=== PATIENT | male | born 1950 | race Caucasian/White ===

== ENCOUNTER 2024-07-22 07:32 | Day surgery (SDC) | payer MEDICARE ==
[2024-07-17 14:25] VITALS: BP 170/87
[~2024-07-22] VITALS: Ht 185.4 cm; Wt 104.5 kg
[~2024-07-22 07:32] MED LIST: CEFAZOLIN SODIUM 2 GM/20 ML SYR IV SCH; COZAAR100 MG PO; DEXAMETHASONE SOD PHOS 4 MG/ML VIAL ONE; FAMOTIDINE 20 MG/ 2 ML VIAL ONE; IBLOOD GLUCOSE TEST STRIP 1 EA TEST VI PRN; KETOROLAC TROMETHAMINE 30 MG/ML VIAL ONE; LACTATED RINGER'S 1,000 ML IV ONE; LACTATED RINGER'S 1,000 ML IV SCH; LIDOCAINE HCL 1% 5 ML SDV INJ ONE; LIPITOR40 MG PO; METOCLOPRAMIDE HCL 10 MG/2 ML SDV ONE; fentaNYL citrate 100 MCG/2 ML VIAL ONE; ondansetron HCL 4 MG/2 ML VIAL ONE; propofoL 200 MG/20 ML VIAL ONE
[2024-07-22 08:14] VITALS: BP 136/86
[2024-07-22] MEDS ORDERED: OXYMETAZOLINE HCL 30 ML BTL NAS SCH (08:30)
[2024-07-22] MEDS ORDERED: IBLOOD GLUCOSE TEST STRIP 1 EA TEST VI PRN (09:30)
[2024-07-22] MEDS ORDERED: NALOXONE HCL 0.4 MG SYR IV PRN (09:30)
[2024-07-22] MEDS ORDERED: ondansetron HCL 4 MG/2 ML VIAL IV PRN (09:30)
[2024-07-22] MEDS ORDERED: METOCLOPRAMIDE HCL 10 MG/2 ML SDV IV PRN (09:30)
[2024-07-22] MEDS ORDERED: droPERidol 5 MG/2 ML VIAL IV PRN (09:30)
[2024-07-22] MEDS ORDERED: fentaNYL citrate 50 MCG/ML SDV IV PRN (09:30)
[2024-07-22] MEDS ORDERED: MORPHINE SULFATE 10 MG/ML VIAL IV PRN (09:30)
[2024-07-22] MEDS ORDERED: PROCHLORPERAZINE EDISYLATE 10 MG/2 ML VIAL IV PRN (09:30)
--- NOTE | 2024-07-22 10:46 | NUR ---
07/22/24 1046 Sheets,Courtney 1015 PT ARRIVED TO PACU ON 10L VIA MASK, WITH ORAL AIRWAY AND JAW THRUST USED TO MAINTAIN AIRWAY. PERIOD OF APNEA NOTED WITHOUT JAWTHRUST. PT NONAROUSABLE TO PAINFUL STIMULI. 1019 HOB INCREASED AND PT REACTIVE TO JAW THRUST, PT SITTING IN HIGH FOWLERS AND JAW THRUST NO LONGER NEEDED. PERIOD OF APNEA NOTED AND DEEP BREATHING ENCOURAGED OFF AND ON WITH TACTILE STIMULI. 1031 ORAL AIRWAY REMOVED, PT REACHING UP TO HIS FACE AND O2 MASK REMOVED. PT REORIENTED TO PACU. PT REPORTS 10 AND TOLERABLE AT THIS TIME. 1040 PT WAKES OFF AND ON, "THE MORE I WAKE THE MORE PAIN I FEEL." EDUCATION GIVEN ON PAIN MEDICATION AND BREATHING. PT ENCOURAGED TO COUGH AND PT ABLE TO FOLLOW COMMANDS. 1042 "I HAVE A HARD TIME WAKING UP." PT CONTINUES TO DEEP BREATH OFF AND ON, WITHOUT STIMULI, RESP RATE 15-18. PT SIPPING WATER PER REQUEST
[2024-07-22] MEDS ORDERED: ACETAMINOPHEN 1,000 MG/100 ML VIAL IV ONE (11:00)
[2024-07-22 11:25] VITALS: BP 144/62
--- NOTE | 2024-07-22 11:34 | NUR ---
1125: PATIENT BACK IN DAY SURGERY ROOM FROM PACU. RATES PAIN 2/10 IN NOSE/SINUSES. NASAL PACKING AND MOUSTACHE DRESSING IN PLACE AND CLEAN, DRY AND INTACT. VS CHECKED. TOLERATING ICE WATER. GIVEN SODA AND APPLESAUCE PER REQUEST. AT BEDSIDE. SCDs ON. CALL LIGHT WITHIN REACH.
[2024-07-22] MEDS ORDERED: HYDROCODONE/ACETA 5/325 TAB PO PRN (11:45)
[2024-07-22] MEDS ORDERED: CEPHALEXIN500 M1 PO (12:15)
[2024-07-22] MEDS ORDERED: HYDROCODON-ACE1 EA10 PO (12:16)
[2024-07-22 12:20] VITALS: BP 147/64
--- NOTE | 2024-07-22 13:18 | NUR ---
1151: CHECKED PATIENT. PATIENT TOLERATED APPLESAUCE AND SODA. STATES DOING WELL. AT BEDSIDE. DENIES NEED FOR PAIN MEDICATION AT THIS TIME. CALL LIGHT WITHIN REACH. 1200: MOUSTACHE DRESSING CHANGED BY OTHER RN FOR SATURATION ON LEFT SIDE. 1220: VS CHECKED. DISCHARGE INSTRUCTIONS GIVEN TO PATIENT AND . PATIENT ASSISTED OOB AND TO STAND. PATIENT GETTING DRESSED. 1240: PATIENT WALKED INDEPENDENTLY TO BATHROOM. GAIT STEADY. IV DC'D WNL. TIP INTACT. DRESSING APPLIED. 1245: PATIENT DISCHARGED TO HOME WITH VIA WHEELCHAIR.
--- NOTE | 2024-07-22 14:19 | OR ---
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 PROCEDURES: 1. Septoplasty. 2. Cautery of the inferior turbinates. 3. Excision of bilateral intranasal synechiae. ANESTHESIA: General, LMA, SAND SYSTEM OPERATOR, Christiano. PREOP HISTORY: Mr. Shea is a 74-year-old man with chronic nasal obstruction. 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 He did have nasal surgery by Dr. Magana about 30 years ago. This is probably cause of the synechiae. In any event, he has myles unresponsive to appropriate medications, taken to the operating for the above-mentioned procedures. OPERATIVE PROCEDURE AND FINDINGS: After informed consent, the patient was taken to the operating room, placed in supine position where general LMA anesthesia was induced. The patient and procedure were verified. The patient received preoperative intranasal oxymetazoline and intravenous Ancef. Headlight speculum exam of the nasal cavity shows significant synechiae inferiorly in the vestibule bilaterally from the septum to the anterior portion of the inferior turbinate. The synechiae were injected with 1% lidocaine with epi and taken down with the Moses Luz elevator. The airway was improved markedly in this manner, minimal bleeding. The raw edges of the excision site were cauterized with needlepoint cautery. Septal deformity on the left side was obstructed with spur extending posteriorly. This Electronically Signed By: JORGE HENDRICKS MD 07/22/24 1419 PATIENT NAME: MARTHA SHEA JR OPERATIVE REPORT DATE OF : 54 REPORT #: [id number] PHYSICIAN: JORGE HENDRICKS MD PCP: MYRA BURNS MD REPORT IS CONFIDENTIAL AND NOT TO BE RELEASED WITHOUT AUTHORIZATION [facility] [address] [place], [place] [address] Signed was injected with 1% lidocaine and excised with Moses. Airway was improved in this manner. A smaller portion on the right side was excised. The inferior turbinates were then cauterized with a long handle needle point cautery starting on the left side. Multiple transmucosal passes on the medial and inferior surface of the inferior turbinate starting anteriorly extending all the way back posteriorly. Airway was markedly improved after this procedure and the hemostasis was verified. Same procedure on the right inferior turbinate. Packing was then placed, one piece of Merocel equal amount trimmed, coated with Neosporin 1 piece each side tied anteriorly over a pad. The pharynx was suctioned clear of blood secretions. Hemostasis was verified. The patient was then awakened, extubated, transported to recovery room in good condition. COMPLICATIONS: No complications. BLOOD LOSS: Minimal. SPECIMEN: No specimen. DRAINS: No drains. PACKING: One piece of Merocel each nostril. Jorge Hendricks MD GC/MODL /[id number] Electronically Signed By: JORGE HENDRICKS MD 07/22/24 1419 PATIENT NAME: SIMONAMARTHA Altaf HO OPERATIVE REPORT DATE OF : 54 REPORT #: [id number] PHYSICIAN: JORGE HENDRICKS MD PCP: MYRA BURNS MD REPORT IS CONFIDENTIAL AND NOT TO BE RELEASED WITHOUT AUTHORIZATION [address] [address] Signed Copies: ~ Electronically Signed By: JORGE HENDRICKS MD 07/22/24 1419 PATIENT NAME: SIMONAMARTHA Altaf HO OPERATIVE REPORT DATE OF : 54 REPORT #: [id number] PHYSICIAN: JORGE HENDRICKS MD PCP: MYRA BURNS MD REPORT IS CONFIDENTIAL AND NOT TO BE RELEASED WITHOUT AUTHORIZATION
[2024-07-22] MEDS ORDERED: SEVOFLURANE 250 ML BTL INH ONE (16:14)
== END 2024-07-22 12:46 | disposition home or self-care (01) ==
LOC: OPS 07:32 → DS 07:32 → OPS 09:30 → DS 11:30 → OPS 12:46
PROVIDERS: ATTEND Otolaryngology
PROC: 09BM0ZZ Excision of Nasal Septum, Open Approach (ICD-10-PCS; principal; 2024-07-22 09:30)
DX: J34.2 Deviated nasal septum (principal); J34.3 Hypertrophy of nasal turbinates; J34.89 Other specified disorders of nose and nasal sinuses; E78.00 Pure hypercholesterolemia, unspecified
CPT/HCPCS: 00160; J0131; J0690; J1100; J1885; J2405; J2704; J2765; J3010; J7121